=== PATIENT | female | born 1945 ===

== ENCOUNTER → 2021-07-18 08:00 | Outpatient (CLI) | payer OTHER ==
[~2021-07-18] VITALS: Ht 152.4 cm; Wt 69.4 kg
[~2021-07-18 08:00] MED LIST: ATORVASTATIN CA40 MG PO; AVAPRO300 MG PO; CHLORTHALIDONE25 MG PO; LEVOTHYROXINE25 MCG PO
== END | disposition home or self-care (01) ==
LOC: LAB 08:00 → SURG 07-23 07:00 → EDSTATUS 07-23 08:00
PROVIDERS: ATTEND Orthopaedic Surgery Sports Medicine
DX: D68.9 Coagulation defect, unspecified (principal); I10 Essential (primary) hypertension